=== PATIENT | female | born 1990 | race Caucasian/White ===

== ENCOUNTER 2023-11-24 20:13 | Emergency (ER) | payer OTHER ==
[2023-11-24 20:16] VITALS: TEMP 98.1; BMI 30.1
[2023-11-24] MEDS ORDERED: TETRACAINE 0.5% OPHTH SOLN 2 ML BOTTLE ONE (23:42)
[2023-11-24] MEDS ORDERED: FLUORESCEIN NA 1 EA STRIP ONE (23:42)
[2023-11-25] MEDS: FLUORESCEIN NA 1 EA STRIP OU ONE (00:55)
[2023-11-25] MEDS: TETRACAINE 0.5% HCL 0.6ML DROPPER.BOTTLE OU ONE (00:55)
[2023-11-25 02:05] VITALS: BP 106/61; PULSE 105; RESP 16
== END 2023-11-25 02:09 | disposition short-term general hospital (02) ==
LOC: JER 20:13
DX: O9A.213 Injury, poisoning and certain other consequences of external causes complicating pregnancy, third trimester (principal); O26.893 Other specified pregnancy related conditions, third trimester; R42 Dizziness and giddiness; H53.8 Other visual disturbances; R06.02 Shortness of breath; W01.0XXA Fall on same level from slipping, tripping and stumbling without subsequent striking against object, initial encounter; Y92.009 Unspecified place in unspecified non-institutional (private) residence as the place of occurrence of the external cause; Z3A.31 31 weeks gestation of pregnancy; Z20.822 Contact with and (suspected) exposure to COVID-19
CPT/HCPCS: 0241U-QW; 99285-25